=== PATIENT | female | born 1945 | race Caucasian/White ===

== ENCOUNTER 2020-05-25 22:29 | Emergency (ER) | payer MEDICARE, BC ==
[~2020-05-25] VITALS: Ht 165.1 cm; Wt 65.9 kg
[2020-05-25 23:24] LABS: BASOPHILS # (AUTO) 0.1 X10'3 (0-0.2); BASOPHILS % (AUTO) 0.8 % (0-1); EOSINOPHILS # (AUTO) 0.1 X10'3 (0-0.9); EOSINOPHILS % (AUTO) 1.6 % (0-6); HEMATOCRIT 38.6 % (35.0-45.0); HEMOGLOBIN 12.7 g/dl (12.0-16.0); LYMPHOCYTES # (AUTO) 1.9 X10'3 (1.1-4.8); LYMPHOCYTES % (AUTO) 20.9 % (21-51); MEAN CORPUSCULAR HEMOGLOBIN 30.7 PG (27.0-31.0); MEAN CORPUSCULAR HGB CONC 32.8 g/dL (33.0-36.5); MEAN CORPUSCULAR VOLUME 93.6 FL (78-98); MEAN PLATELET VOLUME 7.9 FL (7.4-10.4); MONOCYTES # (AUTO) 0.6 X10'3 (0-0.9); NEUTROPHILS # (AUTO) 6.3 X10'3 (1.8-7.7); NEUTROPHILS % (AUTO) 69.7 % (42-75); PLATELET COUNT 300 X10'3 (140-440); RED BLOOD COUNT 4.12 X10'6 (4.20-5.60); RED CELL DISTRIBUTION WIDTH 13.6 % (11.5-14.5)
[2020-05-25 23:26] LABS: ALANINE AMINOTRANSFERASE 27 U/L (12-78); ALBUMIN 3.8 G/DL (3.4-5.0); ALBUMIN/GLOBULIN RATIO 1.1 (1.1-1.5); ALKALINE PHOSPHATASE 74 IU/L (46-116); ANION GAP 10 (8-16); ASPARTATE AMINO TRANSFERASE 18 U/L (10-37); BILIRUBIN,TOTAL 0.2 MG/DL (0.1-1.0); BLOOD UREA NITROGEN 23 MG/DL (7-18); BUN/CREATININE RATIO 26.7 (6.6-38.0); CALCIUM 9.6 MG/DL (8.5-10.1); CHLORIDE 106 MMOL/L (99-107); CREATININE 0.86 MG/DL (0.40-0.90); GLUCOSE 151 MG/DL (70-104); LIPASE 221 U/L (73-393); POTASSIUM 4.1 MMOL/L (3.5-5.1); SODIUM 144 MMOL/L (135-145); TOTAL PROTEIN 7.3 G/DL (6.4-8.2); eGFR 65 ML/MIN
[2020-05-25] MEDS ORDERED: ondansetron/PF 4mg/2ml inj IV ONE (23:30)
[2020-05-25] MEDS ORDERED: ketorolac trometh. 30mg/ml inj. IV ONE (23:30)
[2020-05-25] MEDS ORDERED: normal saline 1000ml 1,000 ML IV ONE (23:55)
[2020-05-26] MEDS ORDERED: morphine 4 MG/ML inj SYRINge IV ONE (00:25)
[2020-05-26] MEDS ORDERED: proCHLORperazine 10 MG/2 ml inj IV ONE (00:25)
[2020-05-26] MEDS ORDERED: tamsulosin 0.4mg capsule PO ONE (00:35)
[2020-05-26 01:15] LABS: CLARITY,URINE CLOUDY (Clear); COLOR,URINE YELLOW (Yellow); GLUCOSE, URINE NEGATIVE (Neg); KETONES,URINE TRACE mg/dl (Neg); LEUKOCYTE ESTERASE ,URINE MODERATE (Neg); NITRITES, URINE NEGATIVE (Neg); OCCULT BLOOD,URINE MODERATE (Neg); PROTEIN,URINE TRACE mg/dl (Neg); UROBILINOGEN,URINE 0.2 E.U/dL (0.2-1.0)
[2020-05-26 01:20] LABS: UA COLLECTION TYPE CLN CATCH MIDSTREAM
[2020-05-26 01:22] LABS: SQUAMOUS EPITHELIAL CELL,UR MODERATE /LPF (FEW)
[2020-05-26 01:23] LABS: CAL OXALATE CRYSTALS 1+ /HPF (NEGATIVE)
[2020-05-26 01:25] LABS: AMORPHOUS PHOSPHATES 2+; BACTERIA,URINE FEW /HPF (Neg)
[2020-05-26] MEDS ORDERED: ONDA4TAB6 PO (01:35)
[2020-05-26] MEDS ORDERED: HYDR-3965 PO (01:35)
[2020-05-26] MEDS ORDERED: CEPH250T PO (01:35)
[2020-05-26] MEDS ORDERED: CefTRIAXone/D5W-Rocephin 1gm 50 ML IV ONE (01:35)
[2020-05-26] MEDS ORDERED: HYDROcodone/acetaminophen 5mg/325mg tablet PO ONE (01:35)
[2020-05-26 02:45] VITALS: BP 91/47
== END 2020-05-26 02:53 | disposition home or self-care (01) ==
LOC: ER 22:30
DX: N20.1 Calculus of ureter (principal); R11.2 Nausea with vomiting, unspecified; Z87.442 Personal history of urinary calculi
CPT/HCPCS: 36415; 74176; 80053; 81001; 83690; 85025; 87088; 96361; 96365; 96375; 99284; J0696; J0780; J1885; J2270; J2405; J7030